=== PATIENT | female | born 1965 | race Caucasian/White ===

== ENCOUNTER 2018-07-20 12:40 | Outpatient (CLI) | payer OTHER ==
--- NOTE | 2018-07-20 14:51 | MRI ---
MRI LEFT SHOULDER WITHOUT CONTRAST: HISTORY: Injury. Fall. COMPARISON: None. FINDINGS: BICEPS TENDON: There is mild extraarticular biceps tenosynovial fluid. The intraarticular biceps te ndon is moderately tendinotic. LABRUM: Evaluation of the labrum is limited on the axial images due to extensive motion artifact. T he superior labrum appears to be intact. ROTATOR CUFF: There is a high-grade undersurface partial tear at the leading edge of the supraspinat us tendon, measuring 7 mm in AP dimension, at the footprint. There is interstitial delamination exte nding along the posterior fibers of the supraspinatus tendon, as well as the infraspinatus tendon. BONES: There is a healing fracture of the left humeral neck with extension to the greater tuberosity , as well as superior articular surface. No lesser tuberosity fracture is appreciated. There is a body within the biceps tendon sheath, measuring 0.6 x 0.4 cm. No advanced degenerative ch anges of the acromioclavicular joint. There is a healing partial tear of axillary pouch inferior glenohumeral ligament. MUSCLES: Muscle bulk is normal without significant atrophy. IMPRESSION: 1. Healing fracture of the humeral neck, extending into the greater tuberosity, with two cortex widt h posterior displacement and some impaction. 2. A 6 x 4 mm body within the biceps tendon sheath, extraarticular. 3. Leading edge undersurface partial tear of the supraspinatus tendon with extensive interstitial de lamination throughout the posterior fibers of the supraspinatus tendon with extension to the infraspi natus tendon. This may be sequela of the recent fracture, as the tears occurred near the footprint a t the fracture. POS: ALEXANDR
== END 2018-07-20 12:41 | disposition home or self-care (01) ==
LOC: TBSIIMAG 12:40
PROVIDERS: ATTEND Family Medicine
DX: S42.202D Unspecified fracture of upper end of left humerus, subsequent encounter for fracture with routine healing (principal); S46.012A Strain of muscle(s) and tendon(s) of the rotator cuff of left shoulder, initial encounter

== ENCOUNTER 2019-04-30 08:06 | Outpatient (CLI) | payer OTHER | END 2019-04-30 08:07 | disposition home or self-care (01) | PROVIDERS: ATTEND Orthopaedic Surgery Hand Surgery | DX: S49.92XD Unspecified injury of left shoulder and upper arm, subsequent encounter (principal) ==

== ENCOUNTER 2019-05-01 09:02 | Outpatient (CLI) | payer OTHER ==
--- NOTE | 2019-05-01 11:57 | MRI ---
MRI LEFT SHOULDER: 05/01/2019 PROVIDED CLINICAL HISTORY: Left shoulder pain. COMPARISON: 07/20/2018 FINDINGS: Interval healing of the previously described proximal humeral fracture. Signal alteration present wit hin the superior aspects of each humeral head, centrally, has an appearance typical for sequela of pr ior bone infarction. Regional marrow and muscular signal appear otherwise normal. There is persistent high grade partial thickness undersurface tearing involving the distal conjoined tendon near the footplate, with associated delamination to the anterior fibers of the infraspinatus. The components of the rotator cuff appear otherwise intact. The longhead biceps tendon appears intact and normally located. The glenoid labrum and glenohumeral a rticular cartilage are suboptimally evaluated in the absence of joint distention but appear grossly n ormal. The amount of fluid within the glenohumeral joint is physiologic. No significant subacromial/s ubdeltoid bursal fluid is evident. Rotator cuff muscular volume appears preserved. Interval changes of apparent distal clavicular resect ion. IMPRESSION: 1. Interval healing of previously described proximal humeral fracture with evidence for a small focus of bone infarction involving the superior aspects of the humeral head centrally. 2. High grade partial thickness undersurface tearing involving the distal conjoined tendon near the f ootplate. POS: OFF
== END 2019-05-01 09:03 | disposition home or self-care (01) ==
LOC: TBSIIMAG 09:02
DX: M25.512 Pain in left shoulder (principal); M19.012 Primary osteoarthritis, left shoulder; M75.112 Incomplete rotator cuff tear or rupture of left shoulder, not specified as traumatic; M75.42 Impingement syndrome of left shoulder; M75.52 Bursitis of left shoulder; M75.02 Adhesive capsulitis of left shoulder; S42.201D Unspecified fracture of upper end of right humerus, subsequent encounter for fracture with routine healing; S46.812A Strain of other muscles, fascia and tendons at shoulder and upper arm level, left arm, initial encounter